=== PATIENT | female | born 1975 | race Caucasian/White ===

== ENCOUNTER 2017-02-13 00:19 | Emergency (ER) | payer OTHER ==
[~2017-02-13] VITALS: Ht 170.2 cm; Wt 87.0 kg
[2017-02-13 00:27] VITALS: Ht 170.2 cm; Wt 87.0 kg
[2017-02-13] MEDS ORDERED: ONDANSETRON 4 MG INJ IM STA (01:23)
[2017-02-13 03:32] LABS: BARBITURATES Negative (NEGATIVE); BENZODIAZEPINES Negative (NEGATIVE)
[2017-02-13 03:34] LABS: CANNABINOIDS Negative (NEGATIVE); COCAINE Negative (NEGATIVE); OPIATES Positive (NEGATIVE)
[2017-02-13 04:00] VITALS: BP 113/67; PULSE 83; RESP 17
--- NOTE | 2017-02-13 04:09 | ERD ---
ER Documentation Chief Complaint Date/Time DATE: 02/13/17 TIME: 04:05 Chief Complaint ALOC. ETOH. pt cold and clammy to touch and temp is low. HPI This 41-year-old female presents the emergency room with alcohol intoxication. She is on a date drinking with her friend as they were from out of town here in [place] to enjoy the evening. She believes she feels more drunk than the amount that she drank. She has no chest pain or shortness of breath. She does have nausea without vomiting. ROS All systems reviewed and are negative except as per history of present illness. Allergies Allergies: Coded Allergies: iodine (Verified Allergy, Unknown, 02/13/17) PMhx/Soc Medical and Surgical Hx: pt denies Medical Hx, pt denies Surgical Hx History of Surgery: No Anesthesia Reaction: No Hx Neurological Disorder: No Hx Respiratory Disorders: No Hx Cardiac Disorders: No Hx Psychiatric Problems: No Hx Miscellaneous Medical Probl: No Hx Alcohol Use: Yes Hx Substance Use: No Hx Tobacco Use: Yes Smoking Status: Light tobacco smoker Physical Exam Vitals Vital Signs Date Time Temp Pulse Resp B/P Pulse Ox O2 Delivery O2 Flow Rate FiO2 02/13/17 00:27 95.6 64 18 116/80 100 Physical Exam Const: [] No acute distress Head: Atraumatic Eyes: Normal Conjunctiva, EOMI, PRL ENT: Normal External Ears, Nose and Mouth. Neck: Full range of motion..~ No meningismus. Resp: Clear to auscultation bilaterally Cardio: Regular rate and rhythm, no murmurs Abd: Soft, non tender, non distended. Normal bowel sounds Skin: No petechiae or rashes Back: No midline or flank tenderness Ext: No cyanosis, or edema Neur: Awake and alert and oriented 3, no focal deficits, cranial nerves II through XII intact Psych: Normal Mood and Affect Results 24 hrs Laboratory Tests Test 02/13/17 02:33 Urine Amphetamines Screen Negative Urine Barbiturates Negative Urine Benzodiazepines Screen Negative Urine Cannabinoids Negative Urine Cocaine Screen Negative Urine Opiates Screen Positive Current Medications Medications (Trade) Dose Ordered Sig/[place] Route PRN Reason Start Time Stop Time Status Last Admin Dose Admin Ondansetron HCl (Zofran Inj) 8 mg ONCE STAT IM 02/13/17 01:23 02/13/17 01:25 DC 02/13/17 01:32 Procedures/MDM 41-year-old female feels more intoxicated than normal. He has a normal urine drug screen except for opiates and she takes [place]. She was given Zofran 8 mg IM which resolved her nausea completely she was then able to take a large amount of p.o. water. She was observed and monitored and stated that she was feeling much better and would like to go. She has no clinical signs of intoxication and will be discharged along with her significant other. I have given her list of local clinics in the area and recommend follow-up in 2-3 days. Given return precautions to the ER as well. Departure Diagnosis: Primary Impression: Alcoholic intoxication Condition: Stable Patient Instructions: Alcohol Intoxication Referrals: [facility] YOU HAVE RECEIVED A MEDICAL SCREENING EXAM AND THE RESULTS INDICATE THAT YOU DO NOT HAVE A CONDITION THAT REQUIRES URGENT TREATMENT IN THE EMERGENCY DEPARTMENT. FURTHER EVALUATION AND TREATMENT OF YOUR CONDITION CAN WAIT UNTIL YOU ARE SEEN IN YOUR DOCTORS OFFICE WITHIN THE NEXT 1-2 DAYS. IT IS YOUR RESPONSIBILITY TO MAKE AN APPOINTMENT FOR FOLOW-UP CARE. IF YOU HAVE A PRIMARY DOCTOR --you should call your primary doctor and schedule an appointment IF YOU DO NOT HAVE A PRIMARY DOCTOR YOU CAN CALL OUR PHYSICIAN REFERRAL HOTLINE AT IF YOU CAN NOT AFFORD TO SEE A PHYSICIAN YOU CAN CHOSE FROM THE FOLLOWING [facility] [address] [facility]. [facility] [address] [facility] [facility] [address] [facility]. [facility] [address] [facility]. [facility] [address] [facility]. [facility]. [address] Additional Instructions: Call your primary care doctor TOMORROW for an appointment during the next 1-2 days.See the doctor sooner or return here if your condition worsens before your appointment time. LIAS DICKERSON DO Feb 13, 2017 04:09
== END 2017-02-13 04:00 | disposition home or self-care (01) ==
LOC: E/R 00:19
DX: F10.129 Alcohol abuse with intoxication, unspecified (principal); F17.210 Nicotine dependence, cigarettes, uncomplicated; R40.4 Transient alteration of awareness
CPT/HCPCS: 80307; 93005; 96372; 99284; J2405